=== PATIENT | female | born 1990 | race Asian ===

== ENCOUNTER 2017-06-09 11:48 | Emergency (ER) | payer OTHER ==
[~2017-06-09] VITALS: Ht 152.4 cm; Wt 59.9 kg
[2017-06-09 12:50] LABS: BASOPHIL % 1.4 % (0-2); PLATELET COUNT 400 x10^3mcL (130-400); RED CELL DISTRIBUTION WIDTH 13.7 % (11.5-14.5)
[2017-06-09 12:59] LABS: microscopic required? YES; urine erythrocyte 3+ (NEGATIVE)
[2017-06-09 13:14] LABS: CALCIUM 9.2 mg/dL (8.5-10.1); CHLORIDE SERUM 102 mmol/L (98-107); CREATININE SERUM 0.7 mg/dL (0.6-1.0); GFR1 > 60 mL/min; GLUCOSE SERUM 97 mg/dL (74-106); POTASSIUM SERUM 3.7 mmol/L (3.5-5.1); SODIUM SERUM 139 mmol/L (136-145)
[2017-06-09 13:18] LABS: ALBUMIN 4.1 g/dL (3.4-5.0); ALKALINE PHOSPHATASE 77 U/L (46-116); ALT/SGPT 25 U/L (14-59); AST/SGOT 17 U/L (15-37); BILIRUBIN TOTAL 0.32 mg/dL (0.20-1.00); LIPASE 104 IU/L (73-393); TOTAL PROTEIN, SERUM 7.5 g/dL (6.4-8.2)
[2017-06-09 14:54] VITALS: BP 111/72
== END 2017-06-09 14:45 | disposition home or self-care (01) ==
LOC: ED 11:48
PROVIDERS: Emergency Medicine
DX: R10.31 Right lower quadrant pain (principal); R31.9 Hematuria, unspecified
CPT/HCPCS: J1885; J2270; J2405; J7030

== ENCOUNTER 2017-07-22 17:05 | Emergency (ER) | payer OTHER ==
[~2017-07-22] VITALS: Ht 152.4 cm; Wt 58.0 kg
[2017-07-22 17:19] VITALS: Ht 152.4 cm; Wt 58.0 kg
[2017-07-22 20:29] LABS: BASOPHIL % 0.6 % (0-2); RED CELL DISTRIBUTION WIDTH 13.7 % (11.5-14.5)
[2017-07-22 20:30] LABS: PLATELET COUNT 423 x10^3mcL (130-400)
[2017-07-22 20:38] LABS: CALCIUM 8.6 mg/dL (8.5-10.1); CARBON DIOXIDE 26.1 mmol/L (21-32); CHLORIDE SERUM 104 mmol/L (98-107); CREATININE SERUM 0.6 mg/dL (0.6-1.0); GFR1 > 60 mL/min; GLUCOSE SERUM 101 mg/dL (74-106); SODIUM SERUM 141 mmol/L (136-145)
[2017-07-22 20:43] LABS: ALKALINE PHOSPHATASE 63 U/L (46-116); ALT/SGPT 17 U/L (14-59); AST/SGOT 13 U/L (15-37); BILIRUBIN TOTAL 0.16 mg/dL (0.20-1.00); TOTAL PROTEIN, SERUM 7.1 g/dL (6.4-8.2); URIC ACID 3.7 mg/dL (2.6-6.0)
[2017-07-22 22:06] LABS: microscopic required? YES; urine erythrocyte 3+ (NEGATIVE)
[2017-07-22 22:22] LABS: AMPHETAMINE QUAL UR NONE DETECTED (NEG <=1000)
[2017-07-22 23:25] VITALS: BP 111/74
== END 2017-07-22 23:25 | disposition home or self-care (01) ==
LOC: ED 17:05
PROVIDERS: Emergency Medicine
DX: N20.0 Calculus of kidney (principal)
CPT/HCPCS: J1885; J2060; J2270; J2405

== ENCOUNTER 2019-07-08 09:40 | Emergency (ER) | payer MEDICAID ==
[~2019-07-08] VITALS: Ht 152.4 cm; Wt 47.6 kg
[2019-07-08 11:03] LABS: BASOPHIL % 0.4 % (0-2)
[2019-07-08 11:04] LABS: PLATELET COUNT 440 x10^3mcL (130-400)
[2019-07-08 11:27] LABS: FREE T4 1.41 ng/dL (0.76-1.46); FREE THYROXINE INDEX 3.5 ug/dL (1.4-4.5); T4(THYROXINE) 9.6 ug/dL (4.7-13.3)
[2019-07-08 12:08] LABS: CALCIUM 9.1 mg/dL (8.5-10.1); CARBON DIOXIDE 32.2 mmol/L (21-32); CHLORIDE SERUM 104 mmol/L (98-107); CREATININE SERUM 0.8 mg/dL (0.6-1.0); GFR1 > 60 mL/min; GLUCOSE SERUM 94 mg/dL (74-106); POTASSIUM SERUM 3.8 mmol/L (3.5-5.1); SODIUM SERUM 142 mmol/L (136-145)
[2019-07-08 12:14] LABS: AMPHETAMINE QUAL UR POSITIVE (See below)
[2019-07-08 12:18] LABS: ALBUMIN 4.3 g/dL (3.4-5.0); ALKALINE PHOSPHATASE 91 U/L (46-116); ALT/SGPT 24 U/L (14-59); AST/SGOT 16 U/L (15-37); BILIRUBIN TOTAL 0.4 mg/dL (0.20-1.00); TOTAL PROTEIN, SERUM 7.5 g/dL (6.4-8.2)
[2019-07-08 12:19] LABS: T3 TOTAL 1.24 ng/mL
[2019-07-08 21:07] VITALS: BP 114/75
== END 2019-07-09 00:37 | disposition home or self-care (01) ==
LOC: ED 09:40
PROVIDERS: Emergency Medicine
DX: F23 Brief psychotic disorder (principal); F19.10 Other psychoactive substance abuse, uncomplicated; F32.9 Major depressive disorder, single episode, unspecified; N80.9 Endometriosis, unspecified; Z88.6 Allergy status to analgesic agent
CPT/HCPCS: 84439; G0480; J1200; J1885; J2060; J2270; J7030